=== PATIENT | female | born 1945 | race Native Hawaiian/Other Pacific Islander ===

== ENCOUNTER 2019-05-20 10:55 | Inpatient (IN) | payer MEDICARE, MEDICAID ==
[~2019-05-20] VITALS: Ht 154.9 cm; Wt 44.8 kg
[2019-05-20] MEDS ORDERED: LORazepam 2MG/ML-1ML VIAL IV ONE (12:15)
[2019-05-20 12:19] LABS: Urine Bacteria NONE SEEN /hpf (None Seen); Urine Blood Negative /uL (Negative); Urine Specific Gravity 1.025 (1.001-1.035); Urine WBC 3 /hpf (0 - 5)
[2019-05-20 12:24] LABS: Basophils # (auto) 0.1 uL; Eosinophils # (auto) 0 uL; Hemoglobin 12.5 g/dL (12.2-16.2); Monocytes # (auto) 0.6 uL; Neutrophils # (auto) 5.1 uL; Nucleated Red Blood Cells % 0.1 %; White Blood Cell 6.8 10^3/uL (4.4-10.8)
[2019-05-20 12:27] LABS: Albumin 3.2 g/dL (3.4-5.0); Anion Gap 9 (5-15); Basophils % (auto) 1.1 % (0.0-2.0); Blood Urea Nitrogen 19 mg/dL (7-18); Calcium 9.2 mg/dL (8.5-10.1); Carbon Dioxide 28 mmol/L (21-32); Chloride 100 mmol/L (98-107); Eosinophils % (auto) 0.6 % (0.0-7.0); Hematocrit 37.8 % (36.0-46.0); Lymphocytes # (auto) 0.9 uL; Mean Corpuscular Hemoglobin 30.7 pg (28.0-32.0); Mean Corpuscular Volume 92.9 fL (80.0-100.0); Monocytes % (auto) 9.1 % (0.0-12.0); Neutrophils % (auto) 75.2 % (37.0-80.0); Red Blood Cells 4.07 10^6/uL (4.0-5.20); Red Cell Distribution Width 13.3 % (11.8-14.3); Sodium 137 mmol/L (136-145)
[2019-05-20 12:30] LABS: Alanine Aminotransferase 20 U/L (13-56); Aspartate Aminotransferase 17 U/L (15-37); BUN/Creatinine Ratio 24.4; GFR African American 93 mL/min; GFR Non-African American 77 mL/min; Glucose 336 mg/dL (74-106)
[2019-05-20] MEDS ORDERED: SODIUM CHLORIDE 0.9% 1,000 ML IV ONE (12:34)
[2019-05-20 12:35] LABS: Alkaline Phosphatase 109 U/L (45-117); Bilirubin, Total 0.8 mg/dL (0.2-1.0); Total Protein 8.6 g/dL (6.4-8.2)
[2019-05-20 12:41] LABS: Platelet Count (auto) 849 10^3/uL (140-450)
[2019-05-20] MEDS ORDERED: ALBUTEROL SULF 2.5 MG/0.5ML(0.5%) NEB SOLN NEB ONE (12:45)
[2019-05-20] MEDS ORDERED: IPRATROPIUM BROM 0.5 MG/2.5ML INH SOL NEB ONE (12:45)
[2019-05-20] MEDS ORDERED: AZITHROMYCIN 500MG/ 250ML 250 ML IV ONE (12:45)
[2019-05-20] MEDS ORDERED: POTASSIUM EFFERVESENT TAB 25 MEQ PO ONE (15:00)
[2019-05-20] MEDS ORDERED: DEXTROSE (50%) 50ML SYRG IV PRN (20:00)
[2019-05-20] MEDS ORDERED: MORPHINE SULF INJ 2 MG/ML SYRINGE 1ML IV PRN (20:00)
[2019-05-20] MEDS ORDERED: LABETALOL HCL 5 MG/ML ML 20ML VIAL IV PRN (20:00)
[2019-05-20] MEDS ORDERED: LORazepam 2MG/ML-1ML VIAL IV PRN ×2 (20:00→22:45)
[2019-05-20] MEDS ORDERED: NITROGLYCERIN 0.4 MG SL TAB SL PRN (20:00)
[2019-05-20] MEDS ORDERED: ASPirin-EC 81 mg tab PO ONE (20:30)
[2019-05-20] MEDS ORDERED: ALBUTEROL SULF 2.5 MG/0.5ML(0.5%) NEB SOLN NEB PRN (20:30)
[2019-05-20] MEDS ORDERED: IPRATROPIUM BROM 0.5 MG/2.5ML INH SOL NEB PRN (20:30)
--- NOTE | 2019-05-20 21:00 | NUR ---
Respiratory note: PT ASSESSED FOR PRN MED NEB TX. HR 81, RR 18, SPO2 95% ON R/A. NO SIGNS OF ANY RESPIRATORY DISTRESS NOTED. ADVISED PT TO CALL IF TX IS NEEDED.
[2019-05-20 21:47] VITALS: BP 146/72
--- NOTE | 2019-05-20 21:47 | NUR ---
TELE ADMIT FROM ER RECEIVED PATIENT VIA WHEELCHAIR FROM ER. PATIENT A/O X2-3, AMBULATORY WITH WALKER AND ASSIST. BED ALARM ON FOR SAFETY. NO S/S OF DISTRESS OR SOB. NO PAIN NOTED OR REPORTED. PATIENT UPDATED ON POC, VERBALIZED UNDERSTANDING. BED LOCKED IN LOW POSITION, CALL LIGHT WITHIN REACH. WILL CONTINUE TO MONITOR PATIENT Q1HR AND PRN.
[2019-05-20 22:00] VITALS: BP 146/72
--- NOTE | 2019-05-20 22:40 | NUR ---
DR KOCH AT BEDSIDE SPEAKING WITH PATIENT. NEW ORDERS RECEIVED. WILL CONTINUE TO MONITOR PATIENT.
[2019-05-20] MEDS: InsuLIN REG 1unit/0.01ml Soln (100units/ml) SC SCH (23:01)
[2019-05-20] MEDS: ATORVASTATIN 20 MG TAB PO SCH (23:01)
[2019-05-20] MEDS: ACCU-CHEK COMFORT CURVE STRIP VI SCH (23:01)
[2019-05-20] MEDS ORDERED: METF-372 PO (23:40)
[2019-05-20] MEDS ORDERED: LISI40TA PO (23:40)
[2019-05-20] MEDS ORDERED: AML5T PO (23:40)
[2019-05-20] MEDS ORDERED: LOSA-69 PO (23:40)
[2019-05-20] MEDS ORDERED: TRAZ-181 PO (23:40)
[2019-05-21] VITALS (7 sets, daily range): BP systolic 135–156; BP diastolic 75–110
[2019-05-21] MEDS: ACCU-CHEK COMFORT CURVE STRIP VI SCH ×4 (06:43→21:36)
[2019-05-21] MEDS: InsuLIN REG 1unit/0.01ml Soln (100units/ml) SC SCH ×4 (06:44→21:37)
[2019-05-21 06:48] LABS: Basophils # (auto) 0.1 uL; Basophils % (auto) 0.6 % (0.0-2.0); Eosinophils # (auto) 0 uL; Monocytes # (auto) 0.6 uL; Red Cell Distribution Width 13.2 % (11.8-14.3)
[2019-05-21 06:50] LABS: Eosinophils % (auto) 0.1 % (0.0-7.0); Hematocrit 35.3 % (36.0-46.0); Hemoglobin 11.8 g/dL (12.2-16.2); Lymphocytes # (auto) 0.9 uL; Lymphocytes % (auto) 9.3 % (10.0-50.0); Mean Corpuscular Hemoglobin 31.2 pg (28.0-32.0); Mean Corpuscular Hgb Conc. 33.5 g/dL (32.0-36.0); Mean Corpuscular Volume 93.1 fL (80.0-100.0); Monocytes % (auto) 6.8 % (0.0-12.0); Neutrophils # (auto) 7.9 uL; Neutrophils % (auto) 83.2 % (37.0-80.0); Platelet Count (auto) 700 10^3/uL (140-450); Red Blood Cells 3.79 10^6/uL (4.0-5.20); White Blood Cell 9.5 10^3/uL (4.4-10.8)
[2019-05-21 07:04] LABS: Calcium 8.9 mg/dL (8.5-10.1); Potassium 3.2 mmol/L (3.5-5.1)
[2019-05-21 07:09] LABS: BUN/Creatinine Ratio 34.5
--- NOTE | 2019-05-21 07:30 | NUR ---
Opening Shift Note Assumed care of patient, awake and alert. No S/S of distress/SOB or pain. Instructed on POC and to call for assist PRN, will continue to monitor for changes Q1hr and PRN.
--- NOTE | 2019-05-21 07:50 | NUR ---
RT NOTE: WENT TO PTS ROOM TO ASSESS FOR PRN BREATHING TX, NO S/S OF SOB. NO INDICATION FOR THE TX AT THIS TIME. HR 89, RR 16, SPO2 93 ON RA, WILL CONTINUE TO MONITOR PT.
[2019-05-21] MEDS: FAMOTIDINE 20 MG TAB PO SCH (09:52)
[2019-05-21] MEDS: ASPirin-EC 81 mg tab PO SCH (09:53)
--- NOTE | 2019-05-21 12:08 | NUR ---
Patient had seizure-like activity for approximately 1 minute. Patient was sitting on the toilet. Patient head was turned to the left and stiffening and some minor jerking noted to upper body. Immediately after, patient was alert and able to ambulate to the bed. B/P 138/110, HR 101, T 98.3. O2 sat 95%. Will inform hospitalist.
--- NOTE | 2019-05-21 12:55 | NUR ---
Dr. Aimee Zhao in to see patient as hospitalist. He was informed of patient's seizure activity earlier. Orders received to continue patient's home meds except metformin.
--- NOTE | 2019-05-21 14:31 | NUR ---
assessment re: home health and living situation Patient is a 74 year old female who is alert and oriented. Prior to admission patient lived home with her son Adama and family and functioned with assistance. Per patient she will return home to her prior living arrangements post discharge and Adama will transport her home. Adama informed me patient is weak in her legs and needs some help and strengthening. I informed Adama that patient has a ss consult for home health. I will inform Alexia LANDEROS that the order needs to be changed to home health for PT and safety. Patient has been given a list of medicare providers. Per patient she is requesting to speak to a [facility] home health agency. Adama has signed for [facility]. I informed patient she has a right to speak to a social media editor regarding all care. I informed patient she has a right to participate in any and all discharge planning. Patient does not have a POA and advanced directive. I have offered patient information on POA and advanced directives. I informed the patient the advantages and benefits of having an Advanced Directive. Patient verbalized understanding and agreed to discharge plan. Addendum: 05/21/19 at 1445 by Camila SANDOVAL Amended: Links added.
--- NOTE | 2019-05-21 17:20 | NUR ---
ELECTROENCEPHALOGRAM- EEG completed on 05/21/2019.
--- NOTE | 2019-05-21 18:52 | NUR ---
RT NOTE PT WAS SEEN BY RT FOR PRN HHN TX. NO PN TX NEEDED AT THIS TIME. NO SOB OR DISTRESS NOTED. HR 15, RR 16, BS CLEAR/DIM, POX 94% ON R/A. PT HAS A NON PRODUCTIVE COUGH NOTED,. PT AWARE TO CALL IF TX NEEDED . CONT ORDERED. Addendum: 05/21/19 at 1900 by Kelli Raymond RT Amended: Links added.
[2019-05-21] MEDS: traZODone HCL 50 MG TAB PO SCH (20:19)
[2019-05-21] MEDS: ATORVASTATIN 20 MG TAB PO SCH (20:19)
[2019-05-22 05:00] VITALS: BP 124/71
[2019-05-22] MEDS: InsuLIN REG 1unit/0.01ml Soln (100units/ml) SC SCH ×4 (06:38→21:14)
[2019-05-22] MEDS: ACCU-CHEK COMFORT CURVE STRIP VI SCH ×4 (06:39→21:14)
--- NOTE | 2019-05-22 07:03 | NUR ---
Respiratory note: ASSESSED PT FOR PRN MED NEB TX. PT IS CURRENTLY ON ROOM AIR: HR 85, RR 16, SPO2 93% WITH CLEAR BS T/O. PT SHOWS NO S/S OF SOB OR RESPIRATORY DISTRESS. MED NEB TX NOT INDICATED AT THIS TIME. INFORMED PT IF SOB OCCURS TO CONTACT RESPIRATORY. WILL CONTINUE TO MONITOR.
--- NOTE | 2019-05-22 07:50 | NUR ---
Opening Shift Note Assumed care of patient, awake and alert x4. No S/S of distress/SOB or pain. Bed at lowest locked position , bed side rails up x2 and call lights within reach. Instructed on POC and to call for assist PRN, will continue to monitor for changes Q1hr and PRN.
[2019-05-22 08:00] VITALS: BP 120/70
[2019-05-22 09:00] VITALS: BP 120/75
[2019-05-22] MEDS: ASPirin-EC 81 mg tab PO SCH (09:54)
[2019-05-22] MEDS: LISINOPRIL 20 MG TAB PO SCH (09:55)
[2019-05-22] MEDS: FAMOTIDINE 20 MG TAB PO SCH (09:55)
[2019-05-22] MEDS: amLODIPine BESYLATE 5 MG TAB PO SCH (09:55)
[2019-05-22] MEDS: LOSARTAN POTASSIUM 50 MG TAB PO SCH (09:56)
--- NOTE | 2019-05-22 11:00 | NUR ---
Assisted patient to bathroom, patient ambulated with walker.
[2019-05-22 13:00] VITALS: BP 135/69
--- NOTE | 2019-05-22 14:56 | NUR ---
Nutrition Assessment Notes please see attached link for complete assessment Est. Needs IBW (47 kg): 9146-6998 kcal (25-30 kcal/kgBW), 47-56 gms pro (1.0-1.2 gms/kgBW). Will continue to monitor pertinent labs and reassess nutrient need prn Addendum: 05/22/19 at [address] Amended: Links added.
--- NOTE | 2019-05-22 16:50 | NUR ---
PATIENT HAS A TEMPERATURE OF 100.4, NO S/S OF DISTRESS NOTED/STATED. COOLING MEASURES STARTED. WILL CONTINUE TO MONITOR. Addendum: 05/22/19 at 1853 by Alejandrina Cunha RN TEMPERATURE REASSESSMENT T 98.8. NO S/S OF DISTRESS. NO C/O PAIN.
[2019-05-22 17:00] VITALS: BP 140/76
--- NOTE | 2019-05-22 19:00 | NUR ---
Closing Note Patient is sitting up in bed having dinner, no c/on pain. Patient on 2LNC PRN and seizure precautions initiated. No s/s of distress noted/stated Bed at lowest locked position, bed side rails up x2 and call light within reach. Will endorse care to NOC RN.
[2019-05-22] MEDS: LEVETIRACETAM 500 MG TAB PO SCH (21:06)
[2019-05-22] MEDS: ATORVASTATIN 20 MG TAB PO SCH (21:06)
[2019-05-22] MEDS: traZODone HCL 50 MG TAB PO SCH (21:06)
[2019-05-22 22:00] VITALS: BP 132/74
[2019-05-23 05:00] VITALS: BP 114/66
[2019-05-23] MEDS: ACCU-CHEK COMFORT CURVE STRIP VI SCH ×2 (06:21→11:30)
[2019-05-23] MEDS: InsuLIN REG 1unit/0.01ml Soln (100units/ml) SC SCH ×2 (06:21→11:30)
--- NOTE | 2019-05-23 07:40 | NUR ---
OPENING SHIFT NOTE Assumed care of patient, comfortably sleeping on room air, breath sounds even and unlabored. No S/S of distress/SOB or pain. Bed at lowest locked position, bed side rails up x2 and call light within reach. Will continue to monitor for changes Q1hr and PRN.
[2019-05-23 08:00] VITALS: BP 134/62
[2019-05-23 09:00] VITALS: BP 134/62
[2019-05-23] MEDS: LEVETIRACETAM 500 MG TAB PO SCH (10:02)
[2019-05-23] MEDS: LOSARTAN POTASSIUM 50 MG TAB PO SCH (10:03)
[2019-05-23] MEDS: FAMOTIDINE 20 MG TAB PO SCH (10:03)
[2019-05-23] MEDS: LISINOPRIL 20 MG TAB PO SCH (10:04)
[2019-05-23] MEDS: amLODIPine BESYLATE 5 MG TAB PO SCH (10:04)
[2019-05-23] MEDS: ASPirin-EC 81 mg tab PO SCH (10:04)
--- NOTE | 2019-05-23 10:10 | NUR ---
RT NOTE: WENT TO PTS ROOM TO ASSESS FOR PRN BREATHING TX, NO S/S OF SOB. HR 101, RR 18, SPO2 94%. WILL CONTINUE TO MONITOR PT.
[2019-05-23 10:53] VITALS: BP 134/62
== END 2019-05-23 12:30 | disposition home health service (06) | DRG 638 ==
LOC: EDSEX 10:55 → ER 10:55 → TELE 10:56 → TELE-CENTR 21:47
PROVIDERS: ADMIT Nurse Practitioner Acute Care; ATTEND Family Medicine
DX: E11.65 Type 2 diabetes mellitus with hyperglycemia (principal); R64 Cachexia; E44.1 Mild protein-calorie malnutrition; Z68.1 Body mass index [BMI] 19.9 or less, adult; G45.9 Transient cerebral ischemic attack, unspecified; R56.9 Unspecified convulsions; G80.9 Cerebral palsy, unspecified; I10 Essential (primary) hypertension; E11.9 Type 2 diabetes mellitus without complications; E87.6 Hypokalemia; E05.90 Thyrotoxicosis, unspecified without thyrotoxic crisis or storm; E78.00 Pure hypercholesterolemia, unspecified; F03.90 Unspecified dementia, unspecified severity, without behavioral disturbance, psychotic disturbance, mood disturbance, and anxiety; Z79.84 Long term (current) use of oral hypoglycemic drugs; Z79.899 Other long term (current) drug therapy
CPT/HCPCS: 36415; 70450; 70551; 71045; 80048; 80053; 80061; 81001; 82962; 83036; 83735; 84443; 84484; 85025; 93005; 93306; 93886; 94640; 94761; 95819; 96361; 96365; 96375; 97116; 97163; 97530; G0378; J1815

== ENCOUNTER 2023-01-18 17:30 | Inpatient (IN) | payer MEDICAID, MEDICARE, OTHER ==
[~2023-01-18] VITALS: Ht 152.4 cm; Wt 41.0 kg
[~2023-01-18 17:30] MED LIST: AML5T PO; LISI40TA16 PO; LOSA50TA46 PO; METF-372 PO; TRAZ-181 PO
[2023-01-18 20:31] LABS: Eosinophils # (auto) 0 10 ^3/uL (0-0.8); Eosinophils % (auto) 0.1 % (0.0-7.0); Hemoglobin 10.8 g/dL (12.2-16.2); Nucleated Red Blood Cells % 0.3 %
[2023-01-18 20:33] LABS: Basophils # (auto) 0 10 ^3/uL (0-0.2); Basophils % (auto) 0.6 % (0.0-2.0); Hematocrit 33.7 % (36.0-46.0); Lymphocytes # (auto) 0.4 10 ^3/uL (0.4-5.4); Lymphocytes % (auto) 6.2 % (10.0-50.0); Mean Corpuscular Hemoglobin 30.1 pg (28.0-32.0); Mean Corpuscular Volume 94.1 fL (80.0-100.0); Monocytes # (auto) 0.6 10 ^3/uL (0-1.3); Monocytes % (auto) 8.5 % (0.0-12.0); Neutrophils % (auto) 84.6 % (37.0-80.0); Red Blood Cells 3.58 10^6/uL (4.0-5.20); Red Cell Distribution Width 17.4 % (11.8-14.3); White Blood Cell 7.1 10^3/uL (4.4-10.8)
[2023-01-18 20:48] LABS: INR 0.95 (0.9-1.15)
[2023-01-18 20:56] LABS: Albumin 3.1 g/dL (3.4-5.0); Blood Urea Nitrogen 40 mg/dL (7-18); Calcium 8.4 mg/dL (8.5-10.1); Carbon Dioxide 21 mmol/L (21-32); Glucose 135 mg/dL (74-106); Magnesium 2.8 mg/dL (1.6-2.6)
[2023-01-18 21:01] LABS: Alanine Aminotransferase 70 U/L (13-56); Alkaline Phosphatase 62 U/L (45-117); Anion Gap 8 (5-15); Aspartate Aminotransferase 177 U/L (15-37); Bilirubin, Total 0.8 mg/dL (0.2-1.0); Blood Alcohol < 3.0 mg/dL (0-5); Chloride 111 mmol/L (98-107); GFR African American 75 mL/min; GFR Non-African American 62 mL/min; Potassium 3.5 mmol/L (3.5-5.1); Sodium 140 mmol/L (136-145); Total Protein 8.3 g/dL (6.4-8.2)
[2023-01-18] MEDS ORDERED: cefTRIAXone 1GM/50ML D5W 50 ML IV ONE (23:15)
[2023-01-18] MEDS ORDERED: ONDANSETRON HCL 4 MG/2 ML VIAL IV PRN (23:15)
[2023-01-18] MEDS ORDERED: ACETAMINOPHEN 325 MG TAB PO PRN (23:15)
[2023-01-18] MEDS ORDERED: NITROGLYCERIN 0.4 MG SL TAB SL PRN (23:15)
[2023-01-18] MEDS ORDERED: DEXTROSE (50%) 50ML SYRG IV PRN (23:15)
[2023-01-18] MEDS ORDERED: DOCUSATE SOD 100 MG CAP PO PRN (23:15)
[2023-01-18] MEDS ORDERED: MORPHINE SULFATE INJ 2 MG/ml SYRG IV PRN (23:15)
[2023-01-18] MEDS ORDERED: AZITHROMYCIN 500MG/ 250ML 250 ML IV ONE (23:15)
[2023-01-18] MEDS ORDERED: hydrALAZINE HCL 20 MG/ML VL IV PRN (23:15)
[2023-01-19 05:06] LABS: Basophils # (auto) 0 10 ^3/uL (0-0.2); Eosinophils # (auto) 0 10 ^3/uL (0-0.8); Mean Corpuscular Hgb Conc. 33.2 g/dL (32.0-36.0); Neutrophils # (auto) 4.3 10 ^3/uL (1.6-8.6)
[2023-01-19 05:07] LABS: Basophils % (auto) 0.5 % (0.0-2.0); Eosinophils % (auto) 0.4 % (0.0-7.0); Hematocrit 28.2 % (36.0-46.0); Hemoglobin 9.3 g/dL (12.2-16.2); Lymphocytes # (auto) 0.4 10 ^3/uL (0.4-5.4); Lymphocytes % (auto) 8.3 % (10.0-50.0); Mean Corpuscular Volume 90.5 fL (80.0-100.0); Monocytes # (auto) 0.3 10 ^3/uL (0-1.3); Monocytes % (auto) 5.6 % (0.0-12.0); Neutrophils % (auto) 85.2 % (37.0-80.0); Nucleated Red Blood Cells % 0.2 %; Red Blood Cells 3.11 10^6/uL (4.0-5.20); Red Cell Distribution Width 16.9 % (11.8-14.3)
[2023-01-19 05:19] LABS: Potassium 3.2 mmol/L (3.5-5.1)
[2023-01-19 05:24] LABS: Albumin 2.4 g/dL (3.4-5.0); BUN/Creatinine Ratio 51.6 (10.0-20.0); Calcium 7.9 mg/dL (8.5-10.1)
[2023-01-19 05:26] LABS: Bilirubin, Total 0.5 mg/dL (0.2-1.0)
[2023-01-19] MEDS: InsuLIN REG 1unit/0.01ml Soln (100units/ml) SC SCH ×4 (07:00→22:14)
[2023-01-19] MEDS: ACCU-CHEK COMFORT CURVE STRIP VI SCH ×4 (07:00→22:14)
[2023-01-19] MEDS: HYDROcodone-ACET 5/325MG TAB PO PRN (07:01)
[2023-01-19 07:31] LABS: Urine Bacteria FEW /hpf (None Seen); Urine Blood 3+ /uL (Negative); Urine Mucus FEW (None Seen); Urine Specific Gravity 1.029 (1.001-1.035); Urine WBC <1 /hpf (0 - 5)
[2023-01-19 08:27] LABS: Alcohol, Urine < 3.0 mg/dL (0-10); Amphetamine Screen, Urine NEGATIVE (NEGATIVE); Barbiturate Scree,Urine NEGATIVE (NEGATIVE); Benzodiazephine Screen, Urine NEGATIVE (NEGATIVE); Cannabinoid Screen, Urine NEGATIVE (NEGATIVE); Cocaine Screen, Urine NEGATIVE (NEGATIVE); Opiate Scree,Urine NEGATIVE (NEGATIVE); Phencyclidine Screen, Urine NEGATIVE (NEGATIVE)
[2023-01-19] MEDS: cefTRIAXone 1GM/50ML D5W 50 ML IV SCH (09:24)
[2023-01-19] MEDS: METOPROLOL TARTRATE 25 MG TAB PO SCH ×2 (10:00→22:00)
[2023-01-19] MEDS: amLODIPine BESYLATE 5 MG TAB PO SCH (10:00)
[2023-01-19] MEDS: AZITHROMYCIN 500MG/ 250ML 250 ML IV SCH (11:24)
[2023-01-19] MEDS: FAMOTIDINE (10MG/ML) 2ML VL IV SCH ×2 (11:45→22:14)
[2023-01-20] MEDS: HYDROcodone-ACET 5/325MG TAB PO PRN (00:29)
[2023-01-20 04:53] LABS: Basophils # (auto) 0 10 ^3/uL (0-0.2); Eosinophils # (auto) 0.1 10 ^3/uL (0-0.8); Lymphocytes # (auto) 0.5 10 ^3/uL (0.4-5.4); Monocytes # (auto) 0.3 10 ^3/uL (0-1.3); Neutrophils # (auto) 3.1 10 ^3/uL (1.6-8.6)
[2023-01-20 04:54] LABS: Basophils % (auto) 0.7 % (0.0-2.0); Eosinophils % (auto) 1.4 % (0.0-7.0); Hematocrit 26.2 % (36.0-46.0); Hemoglobin 8.7 g/dL (12.2-16.2); Lymphocytes % (auto) 13.3 % (10.0-50.0); Mean Corpuscular Hemoglobin 29.8 pg (28.0-32.0); Mean Corpuscular Hgb Conc. 33.3 g/dL (32.0-36.0); Mean Corpuscular Volume 89.4 fL (80.0-100.0); Monocytes % (auto) 7.7 % (0.0-12.0); Neutrophils % (auto) 76.9 % (37.0-80.0); Nucleated Red Blood Cells % 0.2 %; Red Blood Cells 2.93 10^6/uL (4.0-5.20); Red Cell Distribution Width 16.5 % (11.8-14.3)
[2023-01-20 05:15] LABS: Albumin 2.1 g/dL (3.4-5.0); Calcium 7.9 mg/dL (8.5-10.1); Potassium 3.6 mmol/L (3.5-5.1)
[2023-01-20 05:18] LABS: BUN/Creatinine Ratio 53.6 (10.0-20.0); Bilirubin, Total 0.4 mg/dL (0.2-1.0); Total Protein 6.6 g/dL (6.4-8.2)
[2023-01-20] MEDS: ACCU-CHEK COMFORT CURVE STRIP VI SCH ×4 (06:48→22:14)
[2023-01-20] MEDS: InsuLIN REG 1unit/0.01ml Soln (100units/ml) SC SCH ×4 (06:50→22:00)
[2023-01-20] MEDS: cefTRIAXone 1GM/50ML D5W 50 ML IV SCH (10:07)
[2023-01-20] MEDS: FAMOTIDINE (10MG/ML) 2ML VL IV SCH ×2 (10:23→22:52)
[2023-01-20] MEDS: AZITHROMYCIN 500MG/ 250ML 250 ML IV SCH (10:23)
[2023-01-20] MEDS: amLODIPine BESYLATE 5 MG TAB PO SCH (10:24)
[2023-01-20] MEDS: METOPROLOL TARTRATE 25 MG TAB PO SCH ×2 (10:24→22:00)
[2023-01-21] MEDS: InsuLIN REG 1unit/0.01ml Soln (100units/ml) SC SCH ×4 (07:00→21:59)
[2023-01-21] MEDS: ACCU-CHEK COMFORT CURVE STRIP VI SCH ×4 (07:03→21:52)
[2023-01-21] MEDS: AZITHROMYCIN 500MG/ 250ML 250 ML IV SCH (09:50)
[2023-01-21] MEDS: cefTRIAXone 1GM/50ML D5W 50 ML IV SCH (09:50)
[2023-01-21] MEDS: METOPROLOL TARTRATE 25 MG TAB PO SCH ×2 (09:51→21:52)
[2023-01-21] MEDS: amLODIPine BESYLATE 5 MG TAB PO SCH (09:51)
[2023-01-21] MEDS: FAMOTIDINE (10MG/ML) 2ML VL IV SCH (10:30)
[2023-01-21 16:55] VITALS: BP 130/66
[2023-01-21 22:00] VITALS: BP 132/69
[2023-01-22] VITALS (7 sets, daily range): BP systolic 104–161; BP diastolic 62–85
[2023-01-22] MEDS: ACCU-CHEK COMFORT CURVE STRIP VI SCH ×4 (06:36→22:15)
[2023-01-22] MEDS: InsuLIN REG 1unit/0.01ml Soln (100units/ml) SC SCH ×4 (07:00→22:50)
[2023-01-22] MEDS: Ensure Pudding Vanilla 4 oz Cup PO SCH ×4 (07:24→17:40)
[2023-01-22] MEDS: METOPROLOL TARTRATE 25 MG TAB PO SCH ×2 (10:38→22:41)
[2023-01-22] MEDS: amLODIPine BESYLATE 5 MG TAB PO SCH (10:39)
[2023-01-23 05:00] VITALS: BP 122/56
[2023-01-23] MEDS: HYDROcodone-ACET 5/325MG TAB PO PRN (05:46)
[2023-01-23] MEDS: InsuLIN REG 1unit/0.01ml Soln (100units/ml) SC SCH ×3 (06:18→17:00)
[2023-01-23] MEDS: ACCU-CHEK COMFORT CURVE STRIP VI SCH ×3 (06:18→17:20)
[2023-01-23 06:32] LABS: % Iron Saturation 16.7 % (15-50)
[2023-01-23 06:39] LABS: Folate (Folic Acid) 7.25 ng/mL (5.38-24)
[2023-01-23] MEDS: Ensure Pudding Vanilla 4 oz Cup PO SCH ×3 (08:00→17:23)
[2023-01-23 09:00] VITALS: BP 129/60
[2023-01-23] MEDS: METOPROLOL TARTRATE 25 MG TAB PO SCH (10:44)
[2023-01-23] MEDS: amLODIPine BESYLATE 5 MG TAB PO SCH (10:45)
[2023-01-23 13:00] VITALS: BP 129/60
[2023-01-23 17:00] VITALS: BP 137/67
[2023-01-24 08:48] LABS: Hepatitis B Surface Antibody Positive (Negative)
[2023-01-24 09:19] LABS: Hepatitis A Total Antibody Positive (Negative)
[2023-01-24 09:46] LABS: Hepatitis C Antibody Negative (Negative)
== END 2023-01-23 21:33 | DRG 641 ==
LOC: ER 17:30 → EDBD 17:30 → EEVIPCON 23:03 → OVERFLOW 23:03 → WEST WING 01-21 16:04
PROVIDERS: ADMIT Nurse Practitioner Family; ATTEND Hospitalist
DX: E86.0 Dehydration (principal); Z68.1 Body mass index [BMI] 19.9 or less, adult; N17.9 Acute kidney failure, unspecified; E44.1 Mild protein-calorie malnutrition; R62.7 Adult failure to thrive; I16.0 Hypertensive urgency; R29.6 Repeated falls; N32.89 Other specified disorders of bladder; S09.90XA Unspecified injury of head, initial encounter; D64.9 Anemia, unspecified; I10 Essential (primary) hypertension; R74.01 Elevation of levels of liver transaminase levels; E11.9 Type 2 diabetes mellitus without complications; S00.83XA Contusion of other part of head, initial encounter; X58.XXXA Exposure to other specified factors, initial encounter; Y93.89 Activity, other specified; Y92.89 Other specified places as the place of occurrence of the external cause; Y99.8 Other external cause status
CPT/HCPCS: 36415; 70450; 71250; 72125; 74176; 80053; 80307; 80320; 81001; 82607; 82746; 82962; 83540; 83550; 83735; 83880; 85025; 85379; 85610; 85730; 86038; 86704; 86706; 86708; 86803; 87340; 93005; 93306; 93970; 97110; 97116; 97163; 97530; G0378; J0696; J1815; J3490